=== PATIENT | male | born 1985 | race Caucasian/White ===

== ENCOUNTER 2018-02-03 13:11 | Emergency (ER) | payer MEDICAID ==
[~2018-02-03] VITALS: Ht 182.9 cm; Wt 81.6 kg
[2018-02-03 13:25] VITALS: BP 107/63
[2018-02-03] MEDS ORDERED: MULTIVITAMINS1 EAC2 ORAL (13:25)
[2018-02-03] MEDS ORDERED: SUBOXONE 8 MG-1 EAC2 SL (13:25)
--- NOTE | 2018-02-03 13:45 | Emergency Room Report ---
History of Present Illness General Chief Complaint: General Complaint Source: Patient Present Illness HPI 32-year-old male presents emergency department complaining of difficulty sleeping at night and daytime tiredness as well as nodding off frequently 1.5 weeks. Patient reports that he suddenly started back up on Suboxone. Patient states that he has had in the past and did not have reaction like this. Patient states that his roommate has been telling him that he is making a lot of "weird noises "at night while he sleeping and he wakes up several times gasping for air. Patient reports she has a history of anxiety and that Ativan and Ambien worked really well for him. Reports intermittent episodes of tingling down right arm that resolves after several seconds x 3 weeks. denies neck or back pain. Patient states that he has had similar symptoms like this in the past when he was prescribed those medications. Patient denies pain at this time denies fevers, chills, swelling of the lips or time history of asthma or COPD. Pt. denies recent travel, recent immobilization or sedentary lifestyle. Pt. denies pain at this time. Allergies: Coded Allergies: PROMETHAZINE (Verified Allergy, Unknown, 02/03/18) Patient History Past Medical History: see triage record Past Surgical History: none Pertinent Family History: none Reviewed Nursing Documentation: PMH: Agreed; PSxH: Agreed Nursing Documentation-PMH Past Medical History: No History, Except For Review of Systems All Other Systems: negative except mentioned in HPI Physical Exam Vital Signs Date Time Temp Pulse Resp B/P (MAP) Pulse Ox O2 Delivery O2 Flow Rate FiO2 02/03/18 13:20 98.4 69 16 107/63 96 Room Air 98.4 Sp02 EP Interpretation: reviewed, normal General Appearance: no apparent distress, alert, GCS 15, non-toxic Head: normocephalic, atraumatic Eyes: bilateral eye normal inspection, bilateral eye PERRL - pupils are pin- point ENT: hearing grossly normal, normal voice, uvula midline Neck: full range of motion Respiratory: chest non-tender, lungs clear, normal breath sounds, no wheezing, speaking full sentences Cardiovascular #1: regular rate, rhythm Musculoskeletal: back normal, gait/station normal, normal range of motion, non- tender Neurologic: alert, oriented x3, responsive, motor strength/tone normal, sensory intact, normal gait, speech normal, grossly normal Psychiatric: judgement/insight normal - pt. is very knowledgable and detailed about various different controlled substances he was requesting for his symptoms. , anxious Skin: normal color, no rash, warm/dry, well hydrated Lymphatic: no adenopathy Medical Decision Making PA Attestation Dr. Moreno is my supervising Physician whom patient management has been discussed with. Diagnostic Impression: Primary Impression: Hyposomnia, insomnia or sleeplessness associated with anxiety Additional Impressions: Medication requested by patient but not prescribed or administered Drug-seeking behavior ER Course 32-year-old male presents emergency department complaining of difficulty sleeping at night and daytime tiredness as well as nodding off frequently 1.5 weeks. Patient reports that he suddenly started back up on Suboxone. Patient states that he has had in the past and did not have reaction like this. Patient states that his roommate has been telling him that he is making a lot of "weird noises "at night while he sleeping and he wakes up several times gasping for air. Patient reports she has a history of anxiety and that Ativan and Ambien worked really well for him. Reports intermittent episodes of tingling down right arm that resolves after several seconds x 3 weeks. denies neck or back pain. Patient states that he has had similar symptoms like this in the past when he was prescribed those medications. Patient denies pain at this time denies fevers, chills, swelling of the lips or time history of asthma or COPD. Pt. denies recent travel, recent immobilization or sedentary lifestyle. Pt. denies pain at this time. Ddx considered but are not limited to: drug seeking, OD, Insomnia,Narcolepsy, sleep paralysis, sleep apnea just to name a few. Vital signs: are WNL, pt. is afebrile H&PE are most consistent with non-urgent request for Controlled Substances/ medication refill. Pt lists that trazodone, Seroquel, and hydroxyzine do not work for him, and only Ativan and Ambien do. ORDERS: none required at this time, the diagnosis is clinical ED INTERVENTIONS: None required at this time. -I discussed with this patient that I do not identify an emergent condition at this time and that he should follow up with Psychiatric specialty. I also discussed with this patient that I will be providing a list of free reduced cost health clinics, and [facility] resource information. DISCHARGE: At this time pt. is stable for d/c to home. Will provide printed patient care instructions, and any necessary prescriptions. Care plan and follow up instructions have been discussed with the patient prior to discharge. Last Vital Signs Date Time Temp Pulse Resp B/P (MAP) Pulse Ox O2 Delivery O2 Flow Rate FiO2 02/03/18 13:20 98.4 69 16 107/63 96 Room Air 98.4 Disposition: HOME, SELF-CARE Condition: Stable Scripts Buspirone Hcl* (BUSPAR*) 10 Mg Tablet 10 MG ORAL THREE TIMES A DAY, #15 TAB 0 Refills Prov: Deborah Gallegos 02/03/18 Referrals: NON PHYSICIAN (PCP) Patient Instructions: Medical Screening Exam Additional Instructions: Take medications as directed. Follow up with a Primary Care Provider in 3-5 days, even if your symptoms have resolved. Sleep Study may be needed, this will be determined by your PCP or appropriate specialist. --Please review list of primary care clinics, if you do not already have a primary care provider Follow up with PCP or [facility] for eval of your symptoms of anxiety and sleeplessness. Return sooner to ED if new symptoms occur, or current symptoms become worse. - Please note that this Emergency Department Report was dictated using [employer] technology software, occasionally this can lead to erroneous entry secondary to interpretation by the dictation equipment. Deborah Gallegos Feb 03, 2018 13:45
[2018-02-03] MEDS ORDERED: BUSPAR10 MG ORAL (14:04)
[2018-02-03 14:25] VITALS: BP 107/63
== END 2018-02-03 14:25 | disposition home or self-care (01) ==
LOC: EMR 13:40
DX: G47.00 Insomnia, unspecified (principal); Z76.5 Malingerer [conscious simulation]
CPT/HCPCS: 99283